=== PATIENT | female | born 1990 | race Caucasian/White ===

== ENCOUNTER 2016-10-04 04:30 | Emergency (ER) | payer OTHER ==
[~2016-10-04 04:30] MED LIST: DILAUDID2 MG PO; IBUPROFEN400 MG PO; MINOCYCLINE HC100 MG PO; NORCO1 TA1 PO; VENTOLIN HFA IN
--- NOTE | 2016-10-04 05:21 | ED CLINICAL REPORT ---
Clinical Report - Physicians/Mid Levels [facility] [address] [place] [address] 10/04/2016 4:30 Patient: BARRIE GALINDO Time Seen: 04:50. Arrived- By private vehicle. Historian- patient. HISTORY OF PRESENT ILLNESS Chief Complaint: TENDER AREA. This started several days ago and is still present. It was gradual in onset. It is described as painful. It has been located on the left lower extremity (near inguinal crease). A possible cause has been identified (recurrent abscess). Similar symptoms previously: Many times. Recent medical care: The patient was seen recently by a health care provider. ( Has weekly wound care visit.). REVIEW OF SYSTEMS No fever, chills or difficulty breathing. PAST HISTORY PCP: [facility] Center PROBLEMS: Hidradenitis Suppurativa. Hypertension. Bartholin's Abscess. MRSA Infection. ADDITIONAL SURGERIES: 7 surgeries on her arms for wounds. including two skin grafts. Cervical laminectomy. Cholecystectomy. I&D. PHYSICAL EXAM Abdomen: Nontender. (Marked tenderness over the Left inguinal crease.). Skin: Tender indurated area. PROGRESS AND PROCEDURES Incision & Drainage of Abscess: The abscess is located in the left groin (L inguinal crease). The risks of the procedure, benefits and alternatives were explained. Consent was obtained. Local anesthesia provided using 2% lidocaine no epi or bicarb. Skin cleansed with Betadine. The abscess was incised with a #11 surgical blade. A moderate amount of pus was drained. Cavity was irrigated with saline and packed with gauze. Sample obtained for cultures. A dressing was applied. Estimated blood loss: 1 mL or less. ( The abscess was first confirmed with needle aspiration.). CLINICAL IMPRESSION Single deep abscess to the left inguinal region. INSTRUCTIONS (FOLLOW UP AT WOUND CARE CENTER ON THURSDAY. THE PACKING COULD BE CHANGED THEN.). Prescription Medications: Hydrocodone/APAP 5mg / 325mg: take 1-2 orally every 4 hours as needed for pain. Dispense fifteen (15). No refill. Doxycycline 100 mg: Take 1 capsule orally every 12 hours for 10 days. No refill. Follow-up: Follow up with doctor [facility] Thursday in three days. Understanding of the discharge instructions verbalized by patient and family. (Electronically signed by Blaze Flores MD 10/05/2016 21:57)
--- NOTE | 2016-10-04 05:21 | ED ORDER SUMMARY ---
..... Patient: BARRIE GALINDO OrderSheet [facility] VisitID: [id number] [place] [address] 26y, F Registration Date/Time: 10/04/2016 ORDER SHEET Weight: 105.6 kg (stated) Allergies: Amoxicillin, Clindamycin HCl, Epinephrine, Hydrochlorothiazide, Keflex, Latex, Neurontin, OxyCODONE HCl, Sulfa Antibiotics, Tape paper GENERAL ORDERS: Culture, Wound Deep (Groin) (SWAB) Urgent (05:40 10/04/2016 Erlinda CABRAL) (5:41 DDavis R.N.) MEDICATION ORDERS: Hydrocodone-APAP PO 5/325 mg x 2 tabs (NOW) (05:16 10/04/2016 Erlinda CABRAL) (5:40 DDavis R.N.) IV FLUIDS: ORDER SHEET NOTES: [Electronically signed by Anderson Hou R.N. (05:44 10/04/2016)] [Electronically signed by Blaze Flores MD (21:57 10/05/2016)] [Electronically locked/signed by Anderson Hou R.N. (05:44 10/04/2016)]
--- NOTE | 2016-10-04 05:21 | ED CLINICAL REPORT ---
Clinical Report - Physicians/Mid Levels [facility] [address] [place] [address] 10/04/2016 4:30 Patient: BARRIE GALINDO Time Seen: 04:50. Arrived- By private vehicle. Historian- patient. HISTORY OF PRESENT ILLNESS Chief Complaint: TENDER AREA. This started several days ago and is still present. It was gradual in onset. It is described as painful. It has been located on the left lower extremity (near inguinal crease). A possible cause has been identified (recurrent abscess). Similar symptoms previously: Many times. Recent medical care: The patient was seen recently by a health care provider. ( Has weekly wound care visit.). REVIEW OF SYSTEMS No fever, chills or difficulty breathing. PAST HISTORY PCP: Wound Center PROBLEMS: Hidradenitis Suppurativa. Hypertension. Bartholin's Abscess. MRSA Infection. ADDITIONAL SURGERIES: 7 surgeries on her arms for wounds. including two skin grafts. Cervical laminectomy. Cholecystectomy. I&D. PHYSICAL EXAM Abdomen: Nontender. (Marked tenderness over the Left inguinal crease.). Skin: Tender indurated area. PROGRESS AND PROCEDURES Incision & Drainage of Abscess: The abscess is located in the left groin (L inguinal crease). The risks of the procedure, benefits and alternatives were explained. Consent was obtained. Local anesthesia provided using 2% lidocaine no epi or bicarb. Skin cleansed with Betadine. The abscess was incised with a #11 surgical blade. A moderate amount of pus was drained. Cavity was irrigated with saline and packed with gauze. Sample obtained for cultures. A dressing was applied. Estimated blood loss: 1 mL or less. ( The abscess was first confirmed with needle aspiration.). CLINICAL IMPRESSION Single deep abscess to the left inguinal region. INSTRUCTIONS (FOLLOW UP AT WOUND CARE CENTER ON THURSDAY. THE PACKING COULD BE CHANGED THEN.). Prescription Medications: Hydrocodone/APAP 5mg / 325mg: take 1-2 orally every 4 hours as needed for pain. Dispense fifteen (15). No refill. Doxycycline 100 mg: Take 1 capsule orally every 12 hours for 10 days. No refill. Follow-up: Follow up with doctor [facility] Thursday in three days. Understanding of the discharge instructions verbalized by patient and family. (Electronically signed by Blaze Flores MD 10/05/2016 21:57)
--- NOTE | 2016-10-04 05:21 | ED NURSING NOTES ---
Clinical Report - Nurses [facility] [address] [place] [address] 10/04/2016 4:30 Patient: BARRIE GALINDO TRIAGE Triage time 04:35. Acuity: LEVEL 4. Chief Complaint: ABDOMINAL PAIN. Alert. --04:42 Anderson Hou R.N. 04:35 10/04/16. BP: 137/86. HR: 117. RR: 22. O2 saturation: 99% on room air. Temp: 97.4 F. Pain level now: 03/17. --04:42 Anderson Hou R.N. TIM COMA SCORE: Pioneer Coma Scale: 15- eyes open spontaneously (4); best verbal response- oriented x 4 (5); best motor response- obeys commands (6). --04:50 Anderson Hou R.N. Weight: 105.6 kg stated. Height/Length: 63 inches Per Patient. BMI: 41.2. --04:36 Anderson Hou R.N. Medications Citalopram Hydrobromide Oral. --04:37 Anderson Hou R.N. Ciprofloxacin-Ciproflox HCl ER Oral. --04:38 Anderson Hou R.N. Sprintec 28 Oral. --04:39 Anderson oHu R.N. Minocycline Hcl Oral. --04:39 Anderson Hou R.N. The following entry was struck by Anderson Hou R.N., 04:39 (10/04/16) Reason - wrong value. <<STRICKEN ENTRY-- "Sintek". --04:37 Anderson Hou R.N. --END STRIKE>>. Allergies Amoxicillin. Clindamycin HCl. Epinephrine. Hydrochlorothiazide.(nausea) Keflex. Latex. Neurontin. OxyCODONE HCl. Sulfa Antibiotics. Tape paper. --04:36 Anderson Hou R.N. History Arrived by private vehicle. Historian: patient. Accompanied by family. Onset. (6 days ago). ( pt states having a history of cyst on the skin of her lower abdomen). PAST MEDICAL HX: Immunizations: has received tetanus within 5 years. SOCIAL HX: Never smoker. Occasional alcohol use. No drug use. ( denies HI/SI). ABUSE ASSESSMENT: No report of abuse. SELF HARM ASSESSMENT: A self harm assessment was performed. The patient answered "no" to the question "Do you have thoughts of harming or killing yourself?". FALL RISK ASSESSMENT: Fall risk assessment completed. No fall risk identified. NUTRITIONAL RISK ASSESSMENT: The nutritional risk assessment revealed no deficiencies. FUNCTIONAL ASSESSMENT: Functional assessment: no impairments noted. LEARNING NEEDS ASSESSMENT: The learning needs assessment revealed no barriers. --04:42 Anderson Hou R.N. PROBLEMS: Hidradenitis Suppurativa. Hypertension. Abscess. LNMP - Last Normal Menstrual Period. Wound care . Tachycardia. HTN. Bartholin's Abscess. --04:38 Anderson Hou R.N. MRSA Infection. --05:09 Anderson Hou R.N. ADDITIONAL SURGERIES: 7 surgeries on her arms for wounds. Cervical laminectomy. Cholecystectomy. I&D. --04:38 Anderson Hou R.N. Interventions ID band on patient. To treatment room. --04:42 Anderson Hou R.N. PHYSICAL ASSESSMENT GENERAL / NEURO / PSYCH: Alert. Oriented X 4. RESPIRATORY: Respirations not labored. CVS: Capillary refill less than 2 seconds. GI / : No nausea noted. No emesis noted. No diarrhea. SKIN: Skin is warm and dry. ( patient has dressings to area of lower abdomen, patient states having similar episodes of this pain--located on the skin of the lower abdomen-- "about once a year"). --04:44 Anderson Hou R.N. Ambulatory to room. --04:44 Anderson Hou R.N. NURSING PROGRESS NOTES Patient gowned. Head of bed elevated. Two patient identifiers checked. Call light placed in reach. Side rails up x 1. Bed placed in lowest position. Brakes of bed on. Patient ready for evaluation- chart flagged. Patient waiting for evaluation. --04:44 Anderson Hou R.N. ( Dr. Flores with patient). --04:53 Anderson Hou R.N. ( Dr. Flores with patient performing procedure). --05:12 Anderson Hou R.N. 05:28 10/04/2016 Hydrocodone-APAP (Hydrocodone-Acetaminophen) PO 5/325 mg Tablets 2 tab given. Allergies verified, confirmed 5 rights and sedative warning given to the patient and patient's family. --05:40 Anderson Hou R.N. 05:20 - Wound dressings applied to incision site: guaze and tegaderm. --05:44 Anderson Hou R.N. DISPOSITION / DISCHARGE 05:29. Departure time: 528. Condition at departure: stable. No learning barriers present. Discharge instructions provided and reviewed with the patient and parent. Reviewed warnings. Reviewed medication(s) side effects, precautions, dosing and course information. Prescription(s) given to the patient. Treatments reviewed. Reviewed referrals for followup. Patient and parent verbalized understanding. Written instructions provided in Singaporean. The patient was discharged home and accompanied by parent. She left the Emergency Department ambulatory and via private vehicle. Parent driving. --05:42 Anderson Hou R.N. 04:35 10/04/16. BP: 137/86. HR: 117. RR: 22. O2 saturation: 99% on room air. Temp: 97.4 F. Pain level now: 03/17. --05:42 Anderson Hou R.N. 05:29 10/04/16. Pain level now: 12/15. --05:43 Anderson Hou R.N. Locked/Released at 10/04/2016 5:44 by Anderson Hou R.N.
--- NOTE | 2016-10-04 05:21 | ED ORDER SUMMARY ---
..... Patient: BARRIE GALINDO OrderSheet [facility] VisitID: [id number] [place] [address] 26y, F Registration Date/Time: 10/04/2016 ORDER SHEET Weight: 105.6 kg (stated) Allergies: Amoxicillin, Clindamycin HCl, Epinephrine, Hydrochlorothiazide, Keflex, Latex, Neurontin, OxyCODONE HCl, Sulfa Antibiotics, Tape paper GENERAL ORDERS: Culture, Wound Deep (Groin) (SWAB) Urgent (05:40 10/04/2016 Erlinda CABRAL) (5:41 DDavis R.N.) MEDICATION ORDERS: Hydrocodone-APAP PO 5/325 mg x 2 tabs (NOW) (05:16 10/04/2016 Erlinda CABRAL) (5:40 DDavis R.N.) IV FLUIDS: ORDER SHEET NOTES: [Electronically signed by Anderson Hou R.N. (05:44 10/04/2016)] [Electronically signed by Blaze Flores MD (21:57 10/05/2016)] [Electronically locked/signed by Anderson oHu R.N. (05:44 10/04/2016)]
--- NOTE | 2016-10-05 21:58 | ED DISCHARGE INSTRUCTIONS ---
Patient: BARRIE GALINDO General Instructions [facility] VisitID: [id number] [place] [address] 26y, F Registration Date/Time: 10/04/2016 Single deep abscess to the left inguinal region. INSTRUCTIONS (FOLLOW UP AT WOUND CARE CENTER ON THURSDAY. THE PACKING COULD BE CHANGED THEN.). Prescription Medications: Hydrocodone/APAP 5mg / 325mg: take 1-2 orally every 4 hours as needed for pain. Dispense fifteen (15). No refill. Doxycycline 100 mg: Take 1 capsule orally every 12 hours for 10 days. No refill. Follow-up: Follow up with doctor [facility] Thursday in three days. Understanding of the discharge instructions verbalized by patient and family. ADDITIONAL INFORMATION Abscess [Incision & Drainage] An abscess (sometimes called a boil) occurs when bacteria get trapped under the skin and begin to grow. Pus forms inside the abscess as the body responds to the bacteria. An abscess can occur with an insect bite, ingrown hair, blocked oil gland, pimple, cyst, or puncture wound. Treatment of your abscess has required an incision to drain the pus. If the abscess pocket was large, a gauze packing may have been inserted. This will need to be removed and possibly replaced on your next visit. Antibiotics are not required in the treatment of a simple abscess, unless the infection is spreading into the skin around the wound (known as cellulitis). Healing of the wound will take about one to two weeks depending on the size of the abscess. Healthy tissue will grow from the bottom and sides of the opening until it seals over. Home Care: The wound may drain for the first two days. Cover the wound with a clean dry dressing. If the dressing becomes soaked with blood or pus, change it. If a gauze packing was placed inside the abscess cavity, you may be advised to remove it yourself. You may do this in the shower. Once the packing is removed, you should wash the area in the shower or bath 3 to 4 times a day, until the skin opening has closed. If you were prescribed antibiotics, take them as directed until they are all gone. You may use acetaminophen (Tylenol) or ibuprofen (Motrin, Advil) to control pain, unless another pain medicine was prescribed. [ NOTE: If you have liver disease or ever had a stomach ulcer, talk with your doctor before using these medicines.] Follow Up with your doctor as advised by our staff. If a gauze packing was inserted in your wound, it should be removed in 1-2 days. Check your wound every day for the signs of worsening infection listed below. Get Prompt Medical Attention if any of the following occur: Increasing redness or swelling Red streaks in the skin leading away from the wound Increasing local pain or swelling Continued pus draining from the wound two days after treatment Fever of 100.4F (38C) or higher, or as directed by your healthcare provider Hydrocodone Bitartrate, Acetaminophen Oral tablet What is this medicine? ACETAMINOPHEN; HYDROCODONE (a set a ARISTIDES brian fen; reynaldo droe KOE done) is a pain reliever. It is used to treat mild to moderate pain. How should I use this medicine? Take this medicine by mouth. Swallow it with a full glass of water. Follow the directions on the prescription label. If the medicine upsets your stomach, take the medicine with food or milk. Do not take more than you are told to take. Talk to your radiator cleaner regarding the use of this medicine in children. This medicine is not approved for use in children. What side effects may I notice from receiving this medicine? Side effects that you should report to your doctor or health career technical counselor as soon as possible: allergic reactions like skin rash, itching or hives, swelling of the face, lips, or tongue breathing problems confusion feeling faint or lightheaded, falls stomach pain yellowing of the eyes or skin Side effects that usually do not require medical attention (report to your doctor or health career technical counselor if they continue or are bothersome): nausea, vomiting stomach upset What may interact with this medicine? alcohol antihistamines isoniazid medicines for depression, anxiety, or psychotic disturbances medicines for sleep muscle relaxants naltrexone narcotic medicines (opiates) for pain phenobarbital ritonavir tramadol What if I miss a dose? If you miss a dose, take it as soon as you can. If it is almost time for your next dose, take only that dose. Do not take double or extra doses. Where should I keep my medicine? Keep out of the reach of children. This medicine can be abused. Keep your medicine in a safe place to protect it from theft. Do not share this medicine with anyone. Selling or giving away this medicine is dangerous and against the law. Store at room temperature between 15 and 30 degrees C (59 and 86 degrees F). Protect from light. Keep container tightly closed. Throw away any unused medicine after the expiration date. Discard unused medicine and used packaging carefully. Pets and children can be harmed if they find used or lost packages. What should I tell my health care provider before I take this medicine? They need to know if you have any of these conditions: brain tumor Crohn's disease, inflammatory bowel disease, or ulcerative colitis drink more than 3 alcohol-containing drinks per day drug abuse or addiction head injury heart or circulation problems kidney disease or problems going to the bathroom liver disease lung disease, asthma, or breathing problems an unusual or allergic reaction to acetaminophen, hydrocodone, other opioid analgesics, other medicines, foods, dyes, or preservatives or trying to get breast-feeding What should I watch for while using this medicine? Tell your doctor or health career technical counselor if your pain does not go away, if it gets worse, or if you have new or a different type of pain. You may develop tolerance to the medicine. Tolerance means that you will need a higher dose of the medicine for pain relief. Tolerance is normal and is expected if you take the medicine for a long time. Do not suddenly stop taking your medicine because you may develop a severe reaction. Your body becomes used to the medicine. This does NOT mean you are addicted. Addiction is a behavior related to getting and using a drug for a non-medical reason. If you have pain, you have a medical reason to take pain medicine. Your doctor will tell you how much medicine to take. If your doctor wants you to stop the medicine, the dose will be slowly lowered over time to avoid any side effects. You may get drowsy or dizzy when you first start taking the medicine or change doses. Do not drive, use machinery, or do anything that may be dangerous until you know how the medicine affects you. Stand or sit up slowly. There are different types of narcotic medicines (opiates) for pain. If you take more than one type at the same time, you may have more side effects. Give your health care provider a list of all medicines you use. Your doctor will tell you how much medicine to take. Do not take more medicine than directed. Call emergency for help if you have problems breathing. The medicine will cause constipation. Try to have a bowel movement at least every 2 to 3 days. If you do not have a bowel movement for 3 days, call your doctor or health career technical counselor. Too much acetaminophen can be very dangerous. Do not take Tylenol (acetaminophen) or medicines that contain acetaminophen with this medicine. Many non-prescription medicines contain acetaminophen. Always read the labels carefully. You have been given the following additional information: Abscess, Incision And Drainage Hydrocodone Bitartrate, Acetaminophen Oral tablet (Electronically signed by Blaze Flores MD 10/05/2016 21:57)
--- NOTE | 2016-10-05 21:58 | ED DISCHARGE INSTRUCTIONS ---
Patient: BARRIE GALINDO General Instructions [facility] VisitID: [id number] [place] [address] 26y, F Registration Date/Time: 10/04/2016 Single deep abscess to the left inguinal region. INSTRUCTIONS (FOLLOW UP [facility] ON THURSDAY. THE PACKING COULD BE CHANGED THEN.). Prescription Medications: Hydrocodone/APAP 5mg / 325mg: take 1-2 orally every 4 hours as needed for pain. Dispense fifteen (15). No refill. Doxycycline 100 mg: Take 1 capsule orally every 12 hours for 10 days. No refill. Follow-up: Follow up with doctor [facility] Thursday in three days. Understanding of the discharge instructions verbalized by patient and family. ADDITIONAL INFORMATION Abscess [Incision & Drainage] An abscess (sometimes called a boil) occurs when bacteria get trapped under the skin and begin to grow. Pus forms inside the abscess as the body responds to the bacteria. An abscess can occur with an insect bite, ingrown hair, blocked oil gland, pimple, cyst, or puncture wound. Treatment of your abscess has required an incision to drain the pus. If the abscess pocket was large, a gauze packing may have been inserted. This will need to be removed and possibly replaced on your next visit. Antibiotics are not required in the treatment of a simple abscess, unless the infection is spreading into the skin around the wound (known as cellulitis). Healing of the wound will take about one to two weeks depending on the size of the abscess. Healthy tissue will grow from the bottom and sides of the opening until it seals over. Home Care: The wound may drain for the first two days. Cover the wound with a clean dry dressing. If the dressing becomes soaked with blood or pus, change it. If a gauze packing was placed inside the abscess cavity, you may be advised to remove it yourself. You may do this in the shower. Once the packing is removed, you should wash the area in the shower or bath 3 to 4 times a day, until the skin opening has closed. If you were prescribed antibiotics, take them as directed until they are all gone. You may use acetaminophen (Tylenol) or ibuprofen (Motrin, Advil) to control pain, unless another pain medicine was prescribed. [ NOTE: If you have liver disease or ever had a stomach ulcer, talk with your doctor before using these medicines.] Follow Up with your doctor as advised by our staff. If a gauze packing was inserted in your wound, it should be removed in 1-2 days. Check your wound every day for the signs of worsening infection listed below. Get Prompt Medical Attention if any of the following occur: Increasing redness or swelling Red streaks in the skin leading away from the wound Increasing local pain or swelling Continued pus draining from the wound two days after treatment Fever of 100.4F (38C) or higher, or as directed by your healthcare provider Hydrocodone Bitartrate, Acetaminophen Oral tablet What is this medicine? ACETAMINOPHEN; HYDROCODONE (a set a ARISTIDES brian fen; reynaldo droe KOE done) is a pain reliever. It is used to treat mild to moderate pain. How should I use this medicine? Take this medicine by mouth. Swallow it with a full glass of water. Follow the directions on the prescription label. If the medicine upsets your stomach, take the medicine with food or milk. Do not take more than you are told to take. Talk to your general manager in training regarding the use of this medicine in children. This medicine is not approved for use in children. What side effects may I notice from receiving this medicine? Side effects that you should report to your doctor or health student career development specialist as soon as possible: allergic reactions like skin rash, itching or hives, swelling of the face, lips, or tongue breathing problems confusion feeling faint or lightheaded, falls stomach pain yellowing of the eyes or skin Side effects that usually do not require medical attention (report to your doctor or health student career development specialist if they continue or are bothersome): nausea, vomiting stomach upset What may interact with this medicine? alcohol antihistamines isoniazid medicines for depression, anxiety, or psychotic disturbances medicines for sleep muscle relaxants naltrexone narcotic medicines (opiates) for pain phenobarbital ritonavir tramadol What if I miss a dose? If you miss a dose, take it as soon as you can. If it is almost time for your next dose, take only that dose. Do not take double or extra doses. Where should I keep my medicine? Keep out of the reach of children. This medicine can be abused. Keep your medicine in a safe place to protect it from theft. Do not share this medicine with anyone. Selling or giving away this medicine is dangerous and against the law. Store at room temperature between 15 and 30 degrees C (59 and 86 degrees F). Protect from light. Keep container tightly closed. Throw away any unused medicine after the expiration date. Discard unused medicine and used packaging carefully. Pets and children can be harmed if they find used or lost packages. What should I tell my health care provider before I take this medicine? They need to know if you have any of these conditions: brain tumor Crohn's disease, inflammatory bowel disease, or ulcerative colitis drink more than 3 alcohol-containing drinks per day drug abuse or addiction head injury heart or circulation problems kidney disease or problems going to the bathroom liver disease lung disease, asthma, or breathing problems an unusual or allergic reaction to acetaminophen, hydrocodone, other opioid analgesics, other medicines, foods, dyes, or preservatives or trying to get breast-feeding What should I watch for while using this medicine? Tell your doctor or health student career development specialist if your pain does not go away, if it gets worse, or if you have new or a different type of pain. You may develop tolerance to the medicine. Tolerance means that you will need a higher dose of the medicine for pain relief. Tolerance is normal and is expected if you take the medicine for a long time. Do not suddenly stop taking your medicine because you may develop a severe reaction. Your body becomes used to the medicine. This does NOT mean you are addicted. Addiction is a behavior related to getting and using a drug for a non-medical reason. If you have pain, you have a medical reason to take pain medicine. Your doctor will tell you how much medicine to take. If your doctor wants you to stop the medicine, the dose will be slowly lowered over time to avoid any side effects. You may get drowsy or dizzy when you first start taking the medicine or change doses. Do not drive, use machinery, or do anything that may be dangerous until you know how the medicine affects you. Stand or sit up slowly. There are different types of narcotic medicines (opiates) for pain. If you take more than one type at the same time, you may have more side effects. Give your health care provider a list of all medicines you use. Your doctor will tell you how much medicine to take. Do not take more medicine than directed. Call emergency for help if you have problems breathing. The medicine will cause constipation. Try to have a bowel movement at least every 2 to 3 days. If you do not have a bowel movement for 3 days, call your doctor or health student career development specialist. Too much acetaminophen can be very dangerous. Do not take Tylenol (acetaminophen) or medicines that contain acetaminophen with this medicine. Many non-prescription medicines contain acetaminophen. Always read the labels carefully. You have been given the following additional information: Abscess, Incision And Drainage Hydrocodone Bitartrate, Acetaminophen Oral tablet (Electronically signed by Blaze Flores MD 10/05/2016 21:57)
--- NOTE | 2016-10-05 21:58 | ED MAR SUMMARY ---
..... Medication Administration Record [address] [place] [address] Patient: BARRIE GALINDO Visit ID: [id number] 26y, F Weight: 105.6 kg Height/Length: 63 in BMI: 41.2 ALLERGIES: Amoxicillin, Clindamycin HCl, Epinephrine, Hydrochlorothiazide, Keflex, Latex, Neurontin, OxyCODONE HCl, Sulfa Antibiotics, Tape paper Given 05:28 10/04/2016 Anderson Hou R.N. Medication Administered: HYDROCODONE-APAP [PO] (HYDROCODONE-ACETAMINOPHEN), Dose: 2 tab 5/325 mg Tablets PO. Medication Ordered: Hydrocodone-APAP PO 5/325 mg x 2 tabs (NOW).
--- NOTE | 2016-10-05 21:58 | ED MED RECONCILIATION SUMMARY ---
Patient: BARRIE GALINDO Medication Reconciliation Report [facility] VisitID: [id number] [place] [address] 26y, F Registration Date/Time: 10/04/2016 Weight: 105.6 kg Height/Length: 63 in. BMI: 41.3 ALLERGIES: Amoxicillin, Clindamycin HCl, Epinephrine, Hydrochlorothiazide, Keflex, Latex, Neurontin, OxyCODONE HCl, Sulfa Antibiotics, Tape paper The patient's Home Medications are listed below: THE FOLLOWING MEDICATIONS NEED TO BE RECONCILED: Ciprofloxacin-Ciproflox HCl ER Oral Citalopram Hydrobromide Oral Minocycline Hcl Oral Sprintec 28 Oral The source(s) of the original Home Medication information: Not obtained. The following Medications were given to the patient in the Emergency Department: Hydrocodone-APAP [PO] PO 2 tab, administered: 10/04/2016 5:28:00 AM The following Medications were prescribed to the patient: Hydrocodone/APAP 5mg / 325mg: take 1-2 orally every 4 hours as needed for pain. Dispense fifteen (15). No refill. -- Blaze Flores MD Doxycycline 100 mg: Take 1 capsule orally every 12 hours for 10 days. No refill. -- Blaze Flores MD
--- NOTE | 2016-10-05 21:58 | ED MAR SUMMARY ---
..... Medication Administration Record [address] [place] [address] Patient: BARRIE GALINDO Visit ID: [id number] 26y, F Weight: 105.6 kg Height/Length: 63 in BMI: 41.2 ALLERGIES: Amoxicillin, Clindamycin HCl, Epinephrine, Hydrochlorothiazide, Keflex, Latex, Neurontin, OxyCODONE HCl, Sulfa Antibiotics, Tape paper Given 05:28 10/04/2016 Anderson Hou R.N. Medication Administered: HYDROCODONE-APAP [PO] (HYDROCODONE-ACETAMINOPHEN), Dose: 2 tab 5/325 mg Tablets PO. Medication Ordered: Hydrocodone-APAP PO 5/325 mg x 2 tabs (NOW).
--- NOTE | 2016-10-05 21:58 | ED MED RECONCILIATION SUMMARY ---
Patient: BARRIE GALINDO Medication Reconciliation Report [facility] VisitID: [id number] [place] [address] 26y, F Registration Date/Time: 10/04/2016 Weight: 105.6 kg Height/Length: 63 in. BMI: 41.3 ALLERGIES: Amoxicillin, Clindamycin HCl, Epinephrine, Hydrochlorothiazide, Keflex, Latex, Neurontin, OxyCODONE HCl, Sulfa Antibiotics, Tape paper The patient's Home Medications are listed below: THE FOLLOWING MEDICATIONS NEED TO BE RECONCILED: Ciprofloxacin-Ciproflox HCl ER Oral Citalopram Hydrobromide Oral Minocycline Hcl Oral Sprintec 28 Oral The source(s) of the original Home Medication information: Not obtained. The following Medications were given to the patient in the Emergency Department: Hydrocodone-APAP [PO] PO 2 tab, administered: 10/04/2016 5:28:00 AM The following Medications were prescribed to the patient: Hydrocodone/APAP 5mg / 325mg: take 1-2 orally every 4 hours as needed for pain. Dispense fifteen (15). No refill. -- Blaze Flores MD Doxycycline 100 mg: Take 1 capsule orally every 12 hours for 10 days. No refill. -- Blaze Flores MD
== END 2016-10-04 06:47 | disposition home or self-care (01) ==
LOC: ED SRH 04:30
PROC: 0H97XZZ Drainage of Abdomen Skin, External Approach (ICD-10-PCS; principal; 2016-10-04)
DX: L02.214 Cutaneous abscess of groin (principal); I10 Essential (primary) hypertension; Z79.899 Other long term (current) drug therapy; Z88.1 Allergy status to other antibiotic agents; Z88.9 Allergy status to unspecified drugs, medicaments and biological substances; Z88.0 Allergy status to penicillin; Z91.040 Latex allergy status; Z91.09 Other allergy status, other than to drugs and biological substances
CPT/HCPCS: 90131; 90309; 90470